=== PATIENT | male | born 1990 | race Two or more races ===

== ENCOUNTER 2017-12-18 00:30 | Inpatient (IN) | payer OTHER ==
[~2017-12-18] VITALS: Ht 167.6 cm; Wt 80.4 kg
[2017-12-18 01:09] LABS: BASO % 0 % (0-3); EOS # 0.2 x10^3/uL (0.0-0.7); EOS % 1 % (0-3); HEMATOCRIT 46.2 % (39.0-53.0); HEMOGLOBIN 15.9 g/dL (13.0-17.5); LYMPH # 2.2 x10^3/uL (1.0-4.8); LYMPH % 12 % (24-48); MEAN CORPUSCULAR HEMOGLOBIN 30 pg (25-35); MEAN CORPUSCULAR HGB CONC 35 g/dL (31-37); MEAN CORPUSCULAR VOLUME 88 fL (79-100); MONO # 0.9 x10^3/uL (0.0-1.1); MONO % 5 % (0-9); NEUT # 14.7 x10^3uL (1.8-7.7); NEUT % 81 % (31-73); PLATELET COUNT 205 x10^3/uL (140-400); RED BLOOD COUNT 5.24 x10^6/uL (4.30-5.70); RED CELL DISTRIBUTION WIDTH 13.6 % (11.5-14.5); WHITE BLOOD COUNT 18.1 x10^3/uL (4.0-11.0)
[2017-12-18] MEDS ORDERED: ONDANSETRON PF 4 MG/2 ML VIAL. IV ONE (01:30)
[2017-12-18] MEDS ORDERED: IV NORMAL SALINE 1000ML BAG 1,000 ML IV ONE (01:30)
[2017-12-18] MEDS ORDERED: IOHEXOL 300 MG/ML 100ML VIAL. IV ONE (01:30)
[2017-12-18] MEDS ORDERED: CONTRAST GIVEN. MC PRN (01:30)
[2017-12-18] MEDS ORDERED: fentaNYL PF VIAL 100 MCG/2 ML VIAL IV ONE ×2 (01:30→02:30)
[2017-12-18 01:32] LABS: PROTHROMBIN TIME PATIENT 13.9 SEC (11.7-14.0)
[2017-12-18 01:33] LABS: CALCIUM 9.9 mg/dL (8.5-10.1); CREATININE 0.9 mg/dL (0.7-1.3); GFR 101.2; POTASSIUM 3.5 mmol/L (3.5-5.1)
[2017-12-18 01:39] LABS: ALBUMIN 4.3 g/dL (3.4-5.0); ALBUMIN/GLOBULIN RATIO 1.2 (1.0-1.7); TOTAL BILIRUBIN 0.6 mg/dL (0.2-1.0)
--- NOTE | 2017-12-18 02:17 | RAD ---
CT abdomen and pelvis with contrast HISTORY: Right lower quadrant abdominal pain. TECHNIQUE: Helical CT imaging of the abdomen and pelvis with 75 mL Omnipaque 300 intravenous contrast. Abdomen findings: Liver, gallbladder, pancreas, spleen, left adrenal gland and kidneys are unremarkable. Calcifications right adrenal gland. No bowel obstruction. There is acute appendicitis with mild density at the base of the appendix likely a small appendicolith, with wall thickening and edema surrounding the appendix, the appendix diameter is 7 mm. No abscess. No abdominal fluid or adenopathy. There is mild focal ileus of the terminal ileum due to inflammation of the adjacent appendix. Pelvis findings: No fluid or adenopathy. Bladder, prostate, rectum and bones are unremarkable. IMPRESSION: Early changes of acute appendicitis as described above. Exposure: One or more of the following individualized dose reduction techniques were utilized for this examination: 1. Automated exposure control 2. Adjustment of the mA and/or kV according to patient size 3. Use of iterative reconstruction technique Electronically signed by: Ricky Gonsales MD (12/18/2017 2:14 AM) [id number]
--- NOTE | 2017-12-18 02:49 | PHYS DOC ---
Past Medical History Past Medical History: No Pertinent History Past Surgical History: No Surgical History Alcohol Use: None Drug Use: None Adult General Chief Complaint Chief Complaint: ABDOMINAL PAIN HPI HPI 27-year-old male who is currently incarcerated presents with 24-hour history of progressive right lower quadrant pain, nausea and anorexia. He states the pain initially started out in the periumbilical area and has migrated to the right. There is been no gross hematuria or dysuria. No fever chills or sweats. He's never had this kind of pain before. He still has his appendix.[] Review of Systems Review of Systems Constitutional: Denies fever or chills [] Eyes: Denies change in visual acuity, redness, or eye pain [] HENT: Denies nasal congestion or sore throat [] Respiratory: Denies cough or shortness of breath [] Cardiovascular: No additional information not addressed in HPI [] GI: Per history of present illness[] : Denies dysuria or hematuria [] Musculoskeletal: Denies back pain or joint pain [] Integument: Denies rash or skin lesions [] Neurologic: Denies headache, focal weakness or sensory changes [] Endocrine: Denies polyuria or polydipsia [] All other systems were reviewed and found to be within normal limits, except as documented in this note. Current Medications Current Medications Current Medications Medications (Trade) Dose Ordered Sig/Boby Start Time Stop Time Status Last Admin Dose Admin Fentanyl Citrate (Fentanyl 2ml Vial) 50 mcg 1X ONCE 12/18/17 02:30 12/18/17 02:31 DC 12/18/17 02:20 50 MCG Info (CONTRAST GIVEN -- Rx MONITORING) 1 each PRN DAILY PRN 12/18/17 01:30 12/20/17 01:29 Iohexol (Omnipaque 300 Mg/ml) 75 ml 1X ONCE 12/18/17 01:30 12/18/17 01:31 DC 12/18/17 01:56 75 ML Ondansetron HCl (Zofran) 4 mg 1X ONCE 12/18/17 01:30 12/18/17 01:31 DC 12/18/17 01:04 4 MG Sodium Chloride 1,000 ml @ 1,000 mls/hr 1X ONCE 12/18/17 01:30 12/18/17 02:29 DC 12/18/17 01:06 1,000 MLS/HR Allergies Allergies Allergies Coded Allergies Type Severity Reaction Last Updated Verified No Known Drug Allergies 12/18/17 No Physical Exam Physical Exam Constitutional: Well developed, well nourished, moderate distress, appears acutely ill. [] HENT: Normocephalic, atraumatic, bilateral external ears normal, oropharynx moist, no oral exudates, nose normal. [] Eyes: PERRLA, EOMI, conjunctiva normal, no discharge. [] Neck: Normal range of motion, no tenderness, supple, no stridor. [] Cardiovascular:Heart rate regular rhythm, no murmur [] Lungs & Thorax: Bilateral breath sounds clear to auscultation [] Abdomen: Right lower quadrant tender to palp with guarding and rebound[] Skin: Warm, dry, no erythema, no rash. [] Back: No tenderness, no CVA tenderness. [] Extremities: No tenderness, no cyanosis, no clubbing, ROM intact, no edema. [] Neurologic: Alert and oriented X 3, normal motor function, normal sensory function, no focal deficits noted. [] Psychologic: Affect normal, judgement normal, mood normal. [] Current Patient Data Vital Signs Vital Signs Date Time Temp Pulse Resp B/P (MAP) Pulse Ox O2 Delivery O2 Flow Rate FiO2 12/18/17 02:20 18 98 Room Air 12/18/17 01:58 93 144/65 (91) 12/18/17 00:30 98.6 98.6 Lab Values Laboratory Tests Test 12/18/17 00:46 White Blood Count 18.1 x10^3/uL (4.0-11.0) H Red Blood Count 5.24 x10^6/uL (4.30-5.70) Hemoglobin 15.9 g/dL (13.0-17.5) Hematocrit 46.2 % (39.0-53.0) Mean Corpuscular Volume 88 fL (79-100) Mean Corpuscular Hemoglobin 30 pg (25-35) Mean Corpuscular Hemoglobin Concent 35 g/dL (31-37) Red Cell Distribution Width 13.6 % (11.5-14.5) Platelet Count 205 x10^3/uL (140-400) Neutrophils (%) (Auto) 81 % (31-73) H Lymphocytes (%) (Auto) 12 % (24-48) L Monocytes (%) (Auto) 5 % (0-9) Eosinophils (%) (Auto) 1 % (0-3) Basophils (%) (Auto) 0 % (0-3) Neutrophils # (Auto) 14.7 x10^3uL (1.8-7.7) H Lymphocytes # (Auto) 2.2 x10^3/uL (1.0-4.8) Monocytes # (Auto) 0.9 x10^3/uL (0.0-1.1) Eosinophils # (Auto) 0.2 x10^3/uL (0.0-0.7) Basophils # (Auto) 0.0 x10^3/uL (0.0-0.2) Platelet Estimate Pending Prothrombin Time 13.9 SEC (11.7-14.0) Prothrombin Time INR 1.1 (0.8-1.1) Sodium Level 136 mmol/L (136-145) Potassium Level 3.5 mmol/L (3.5-5.1) Chloride Level 100 mmol/L (98-107) Carbon Dioxide Level 24 mmol/L (21-32) Anion Gap 12 (6-14) Blood Urea Nitrogen 9 mg/dL (8-26) Creatinine 0.9 mg/dL (0.7-1.3) Estimated GFR (Cockcroft-Gault) 101.2 BUN/Creatinine Ratio 10 (6-20) Glucose Level 105 mg/dL (70-99) H Calcium Level 9.9 mg/dL (8.5-10.1) Total Bilirubin 0.6 mg/dL (0.2-1.0) Aspartate Amino Transferase (AST) 17 U/L (15-37) Alanine Aminotransferase (ALT) 37 U/L (16-63) Alkaline Phosphatase 89 U/L (46-116) Total Protein 8.0 g/dL (6.4-8.2) Albumin 4.3 g/dL (3.4-5.0) Albumin/Globulin Ratio 1.2 (1.0-1.7) Laboratory Tests 12/18/17 00:46 Laboratory Tests 12/18/17 00:46 EKG EKG [] Radiology/Procedures Radiology/Procedures [] Impressions: PROCEDURE: CT ABD PELV W/ IV CONTRST ONLY CT abdomen and pelvis with contrast HISTORY: Right lower quadrant abdominal pain. TECHNIQUE: Helical CT imaging of the abdomen and pelvis with 75 mL Omnipaque 300 intravenous contrast. Abdomen findings: Liver, gallbladder, pancreas, spleen, left adrenal gland and kidneys are unremarkable. Calcifications right adrenal gland. No bowel obstruction. There is acute appendicitis with mild density at the base of the appendix likely a small appendicolith, with wall thickening and edema surrounding the appendix, the appendix diameter is 7 mm. No abscess. No abdominal fluid or adenopathy. There is mild focal ileus of the terminal ileum due to inflammation of the adjacent appendix. Pelvis findings: No fluid or adenopathy. Bladder, prostate, rectum and bones are unremarkable. IMPRESSION: Early changes of acute appendicitis as described above. Course & Med Decision Making Course & Med Decision Making Pertinent Labs and Imaging studies reviewed. (See chart for details) [] Dragon Disclaimer Dragon Disclaimer This electronic medical record was generated, in whole or in part, using a voice recognition dictation system. Departure Departure Impression: Primary Impression: Acute appendicitis Disposition: 09 ADMITTED INPATIENT Condition: STABLE Referrals: NO PCP (PCP) Problem Qualifiers Primary Impression: Acute appendicitis Acute appendicitis type: with generalized peritonitis Qualified Codes: K35.2 - Acute appendicitis with generalized peritonitis CATE HARLEY DO Dec 18, 2017 02:49
[2017-12-18] MEDS ORDERED: ONDANSETRON PF 4 MG/2 ML VIAL. IV PRN ×3 (03:00→17:45)
[2017-12-18] MEDS ORDERED: PIP/TAZO PER PHARMACY MC PRN (03:00)
[2017-12-18 03:05] LABS: BILIRUBIN,URINE NEGATIVE (NEG); CLARITY,URINE CLEAR; COLOR,URINE YELLOW; NITRITE,URINE NEGATIVE (NEG); PROTEIN,URINE NEGATIVE (NEG-TRACE); UROBILINOGEN,URINE 0.2 mg/dL (0.2 mg/dL)
[2017-12-18 03:20] VITALS: BP 132/67
[2017-12-18 03:20] LABS: BACTERIA,URINE 0 /HPF (0-FEW); RBC,URINE 0 /HPF (0-2); WBC,URINE 0 /HPF (0-4)
[2017-12-18 03:21] LABS: SQUAMOUS EPITHELIAL CELL,UR OCC /LPF
[2017-12-18] MEDS: fentaNYL PF VIAL 100 MCG/2 ML VIAL IV PRN ×5 (03:47→20:40)
[2017-12-18] MEDS: IV NORMAL SALINE 1000ML BAG 1,000 ML IV SCH ×2 (03:50→22:41)
[2017-12-18] MEDS: PIPERACILLIN/TAZOBACTAM 3.375 GM in IV NORMAL SALINE 50ML 50 ML IV SCH ×5 (03:51→23:32)
[2017-12-18 04:37] LABS: % BANDS 10 % (0-9); % LYMPHS 16 % (24-48); % MONOS 3 % (0-10); % SEGS 71 % (35-66); PLT ESTIMATE ADEQUATE (ADEQUATE)
[2017-12-18 07:00] VITALS: BP 110/54
[2017-12-18 11:00] VITALS: BP 110/59
--- NOTE | 2017-12-18 13:55 | PDOC1 ---
History and Physical Date of Admission Date of Admission DATE: 12/18/17 TIME: 13:51 Identification/Chief Complaint Chief Complaint RLQ abd pain Source Source: Chart review, Patient History of Present Illness History of Present Illness 27 yo M with RLQ abd pain for one day. No previous episode. No N/V. Past Medical History Cardiovascular: No pertinent hx Past Surgical History Past Surgical History: No pertinent history Family History Family History: No Significant Social History Smoke: No ALCOHOL: none Current Problem List Problem List Problems Medical Problems: (1) Acute appendicitis Status: Acute Current Medications Current Medications Current Medications Fentanyl Citrate (Fentanyl 2ml Vial) 50 mcg 1X ONCE IV Last administered on 12/18/17at 01:05; Start 12/18/17 at 01:30; Stop 12/18/17 at 01:31; Status DC Sodium Chloride 1,000 ml @ 1,000 mls/hr 1X ONCE IV Last administered on at 01:06; Start 12/18/17 at 01:30; Stop 12/18/17 at 02:29; Status DC Ondansetron HCl (Zofran) 4 mg 1X ONCE IV Last administered on 12/18/17at 01:04; Start 12/18/17 at 01:30; Stop 12/18/17 at 01:31; Status DC Iohexol (Omnipaque 300 Mg/ml) 75 ml 1X ONCE IV Last administered on 12/18/17at 01:56; Start 12/18/17 at 01:30; Stop 12/18/17 at 01:31; Status DC Info (CONTRAST GIVEN -- Rx MONITORING) 1 each PRN DAILY PRN MC SEE COMMENTS; Start 12/18/17 at 01:30; Stop 12/20/17 at 01:29 Fentanyl Citrate (Fentanyl 2ml Vial) 50 mcg 1X ONCE IV Last administered on 12/18/17at 02:20; Start 12/18/17 at 02:30; Stop 12/18/17 at 02:31; Status DC Piperacillin Sod/ Tazobactam Sod (Zosyn Per Pharmacy) 1 each PRN DAILY PRN MC SEE COMMENTS; Start 12/18/17 at 03:00 Ondansetron HCl (Zofran) 4 mg PRN Q8HRS PRN IV NAUSEA/VOMITING 1ST CHOICE; Start 12/18/17 at 03:00; Stop 12/19/17 at 02:59 Fentanyl Citrate (Fentanyl 2ml Vial) 50 mcg PRN Q2HR PRN IV SEVERE PAIN Last administered on 12/18/17at 03:47; Start 12/18/17 at 03:00; Stop 12/19/17 at 02:59 Sodium Chloride 1,000 ml @ 125 mls/hr Q8H IV Last administered on 12/18/17at 03: 50; Start 12/18/17 at 02:57; Stop 12/19/17 at 02:56 Piperacillin Sod/ Tazobactam Sod 3.375 gm/Sodium Chloride 50 ml @ 100 mls/hr Q6HRS IV Last administered on 12/18/17at 11:41; Start 12/18/17 at 03:30 Allergies Allergies: Coded Allergies: No Known Drug Allergies (Unverified , 12/18/17) ROS Gastrointestinal: Yes Abdominal Pain Physical Exam General: Alert, Oriented X3, Cooperative, No acute distress HEENT: Atraumatic Lungs: Normal air movement Abdomen: Soft, Other (TTP RLQ) Rectal Exam: not examined Extremities: No clubbing, No cyanosis Skin: No rashes, No breakdown Neuro: Normal speech, Sensation intact Psych/Mental Status: Mental status NL, Mood NL Vitals Vitals Vital Signs Date Time Temp Pulse Resp B/P (MAP) Pulse Ox O2 Delivery O2 Flow Rate FiO2 12/18/17 11:00 97.5 69 18 110/59 (76) 98 Room Air 97.5 Labs Labs Laboratory Tests Test 12/18/17 00:46 12/18/17 02:54 White Blood Count 18.1 x10^3/uL (4.0-11.0) Red Blood Count 5.24 x10^6/uL (4.30-5.70) Hemoglobin 15.9 g/dL (13.0-17.5) Hematocrit 46.2 % (39.0-53.0) Mean Corpuscular Volume 88 fL (79-100) Mean Corpuscular Hemoglobin 30 pg (25-35) Mean Corpuscular Hemoglobin Concent 35 g/dL (31-37) Red Cell Distribution Width 13.6 % (11.5-14.5) Platelet Count 205 x10^3/uL (140-400) Neutrophils (%) (Auto) 81 % (31-73) Lymphocytes (%) (Auto) 12 % (24-48) Monocytes (%) (Auto) 5 % (0-9) Eosinophils (%) (Auto) 1 % (0-3) Basophils (%) (Auto) 0 % (0-3) Neutrophils # (Auto) 14.7 x10^3uL (1.8-7.7) Lymphocytes # (Auto) 2.2 x10^3/uL (1.0-4.8) Monocytes # (Auto) 0.9 x10^3/uL (0.0-1.1) Eosinophils # (Auto) 0.2 x10^3/uL (0.0-0.7) Basophils # (Auto) 0.0 x10^3/uL (0.0-0.2) Segmented Neutrophils % 71 % (35-66) Band Neutrophils % 10 % (0-9) Lymphocytes % 16 % (24-48) Monocytes % 3 % (0-10) Platelet Estimate Adequate (ADEQUATE) Prothrombin Time 13.9 SEC (11.7-14.0) Prothromb Time International Ratio 1.1 (0.8-1.1) Sodium Level 136 mmol/L (136-145) Potassium Level 3.5 mmol/L (3.5-5.1) Chloride Level 100 mmol/L (98-107) Carbon Dioxide Level 24 mmol/L (21-32) Anion Gap 12 (6-14) Blood Urea Nitrogen 9 mg/dL (8-26) Creatinine 0.9 mg/dL (0.7-1.3) Estimated GFR (Cockcroft-Gault) 101.2 BUN/Creatinine Ratio 10 (6-20) Glucose Level 105 mg/dL (70-99) Calcium Level 9.9 mg/dL (8.5-10.1) Total Bilirubin 0.6 mg/dL (0.2-1.0) Aspartate Amino Transf (AST/SGOT) 17 U/L (15-37) Alanine Aminotransferase (ALT/SGPT) 37 U/L (16-63) Alkaline Phosphatase 89 U/L (46-116) Total Protein 8.0 g/dL (6.4-8.2) Albumin 4.3 g/dL (3.4-5.0) Albumin/Globulin Ratio 1.2 (1.0-1.7) Urine Collection Type Unknown Urine Color Yellow Urine Clarity Clear Urine pH 6.0 Urine Specific [place] >=1.030 Urine Protein Negative mg/dL (NEG-TRACE) Urine Glucose (UA) Negative mg/dL (NEG) Urine Ketones (Stick) Negative mg/dL (NEG) Urine Blood Negative (NEG) Urine Nitrite Negative (NEG) Urine Bilirubin Negative (NEG) Urine Urobilinogen Dipstick 0.2 mg/dL (0.2 mg/dL) Urine Leukocyte Esterase Negative (NEG) Urine RBC 0 /HPF (0-2) Urine WBC 0 /HPF (0-4) Urine Squamous Epithelial Cells Occ /LPF Urine Bacteria 0 /HPF (0-FEW) Laboratory Tests Test 12/18/17 00:46 12/18/17 02:54 White Blood Count 18.1 x10^3/uL (4.0-11.0) Red Blood Count 5.24 x10^6/uL (4.30-5.70) Hemoglobin 15.9 g/dL (13.0-17.5) Hematocrit 46.2 % (39.0-53.0) Mean Corpuscular Volume 88 fL (79-100) Mean Corpuscular Hemoglobin 30 pg (25-35) Mean Corpuscular Hemoglobin Concent 35 g/dL (31-37) Red Cell Distribution Width 13.6 % (11.5-14.5) Platelet Count 205 x10^3/uL (140-400) Neutrophils (%) (Auto) 81 % (31-73) Lymphocytes (%) (Auto) 12 % (24-48) Monocytes (%) (Auto) 5 % (0-9) Eosinophils (%) (Auto) 1 % (0-3) Basophils (%) (Auto) 0 % (0-3) Neutrophils # (Auto) 14.7 x10^3uL (1.8-7.7) Lymphocytes # (Auto) 2.2 x10^3/uL (1.0-4.8) Monocytes # (Auto) 0.9 x10^3/uL (0.0-1.1) Eosinophils # (Auto) 0.2 x10^3/uL (0.0-0.7) Basophils # (Auto) 0.0 x10^3/uL (0.0-0.2) Segmented Neutrophils % 71 % (35-66) Band Neutrophils % 10 % (0-9) Lymphocytes % 16 % (24-48) Monocytes % 3 % (0-10) Platelet Estimate Adequate (ADEQUATE) Prothrombin Time 13.9 SEC (11.7-14.0) Prothromb Time International Ratio 1.1 (0.8-1.1) Sodium Level 136 mmol/L (136-145) Potassium Level 3.5 mmol/L (3.5-5.1) Chloride Level 100 mmol/L (98-107) Carbon Dioxide Level 24 mmol/L (21-32) Anion Gap 12 (6-14) Blood Urea Nitrogen 9 mg/dL (8-26) Creatinine 0.9 mg/dL (0.7-1.3) Estimated GFR (Cockcroft-Gault) 101.2 BUN/Creatinine Ratio 10 (6-20) Glucose Level 105 mg/dL (70-99) Calcium Level 9.9 mg/dL (8.5-10.1) Total Bilirubin 0.6 mg/dL (0.2-1.0) Aspartate Amino Transf (AST/SGOT) 17 U/L (15-37) Alanine Aminotransferase (ALT/SGPT) 37 U/L (16-63) Alkaline Phosphatase 89 U/L (46-116) Total Protein 8.0 g/dL (6.4-8.2) Albumin 4.3 g/dL (3.4-5.0) Albumin/Globulin Ratio 1.2 (1.0-1.7) Urine Collection Type Unknown Urine Color Yellow Urine Clarity Clear Urine pH 6.0 Urine Specific [place] >=1.030 Urine Protein Negative mg/dL (NEG-TRACE) Urine Glucose (UA) Negative mg/dL (NEG) Urine Ketones (Stick) Negative mg/dL (NEG) Urine Blood Negative (NEG) Urine Nitrite Negative (NEG) Urine Bilirubin Negative (NEG) Urine Urobilinogen Dipstick 0.2 mg/dL (0.2 mg/dL) Urine Leukocyte Esterase Negative (NEG) Urine RBC 0 /HPF (0-2) Urine WBC 0 /HPF (0-4) Urine Squamous Epithelial Cells Occ /LPF Urine Bacteria 0 /HPF (0-FEW) Images Images CT c/w appendicitis VTE Prophylaxis Ordered VTE Prophylaxis Devices: Yes VTE Pharmacological Prophylaxi: Contraindicated Assessment/Plan Assessment/Plan Appendicitis given elevated WBC, concern for severe and/or perforated. IV abx started. TO OR for laparoscopic versus open appendectomy. R/R/B/A d/w pt. Risks, including, but not limited to: bleeding, infection, damage to surrounding structures, risk of anesthesia, risk of open. He appears to understand, his questions are answered and he elects to proceed. BRYCE LI MD Dec 18, 2017 13:55
[2017-12-18] MEDS ORDERED: BUPIVACAINE-EPI 0.5%-1:200000 50 ML VIAL. ONE (15:27)
[2017-12-18] MEDS ORDERED: IV RINGERS,LACTATED 1000ML 1,000 ML IV SCH (15:37)
[2017-12-18] MEDS ORDERED: fentaNYL PF VIAL 100 MCG/2 ML VIAL IV PRN (15:45)
[2017-12-18] MEDS ORDERED: HYDROmorphone 2 MG/ML VIAL IV PRN (15:45)
[2017-12-18] MEDS ORDERED: PROCHLORPERAZINE 10 MG/2 ML VIAL. IV PRN (15:45)
[2017-12-18] MEDS ORDERED: MORPHINE SULFATE 2 MG/ML VIAL. IV PRN (15:45)
[2017-12-18] MEDS ORDERED: LIDOCAINE 1% PF 2 ML VIAL. ID PRN (15:45)
[2017-12-18] MEDS ORDERED: fentaNYL PF VIAL 100 MCG/2 ML VIAL ONE ×2 (16:40→17:48)
[2017-12-18] MEDS ORDERED: ROCURONIUM 50 MG/5 ML VIAL. ONE (17:30)
[2017-12-18] MEDS ORDERED: SEVOFLURANE 61 TO 120 MINUTES. IH ONE (17:30)
[2017-12-18] MEDS ORDERED: DESFLURANE 61 TO 120 MINUTES IH ONE (17:30)
[2017-12-18] MEDS ORDERED: ONDANSETRON PF 4 MG/2 ML VIAL. ONE (17:31)
[2017-12-18] MEDS ORDERED: PROPOFOL 20 ML IV ONE (17:31)
[2017-12-18] MEDS ORDERED: DEXAMETHASONE SOD PHOS 20 MG/5 ML VIAL. ONE (17:31)
[2017-12-18] MEDS ORDERED: NEOSTIGMINE METHYLSULFATE 5 MG/5 ML SYRINGE. ONE (17:33)
[2017-12-18] MEDS ORDERED: GLYCOPYRROLATE 1 MG/5 ML VIAL. ONE (17:33)
--- NOTE | 2017-12-18 17:39 | PDOC4 ---
OPERATIVE NOTE Date: Date: Dec 18, 2017 Pre-Op Diagnosis: Appendicitis Post-Op Diagnosis: same Procedure Performed: Laparoscopic appendectomy Surgeon: Hector Li Anesthesia Type: GETA plus local Blood Loss: 50 Specimans Obtained: appendix Findings: erythematous, thickened appendix Complications: none Operative Note: After obtaining informed consent, patient was taken to OR, induced under GETA and prepped in the usual fashion. 5 mm port placed LLQ and suprapubic, 12 port placed umbilical, all under laparoscopic guidance. Abdominal cavity explored and otherwise unremarkable. Appendix was identified off the cecum and noted to be thickened and inflamed. Base divided with general load ROSE, mesoappendix divided with vascular load. Additional hemostasis obtained with clips on mesoappendix. Copious irrigation. No evidence of bleeding or other pathology. Ports removed without bleeding. Fascia repaired with 0 vicryl. Skin repaired with 4 0 monocryl. Dressing applied. Patient tolerated procedure well and sent to PACU in stable condition. All counts correct. BRYCE LI MD Dec 18, 2017 17:39
[2017-12-18] MEDS ORDERED: KETOROLAC 15 MG/ML VIAL. IV PRN (17:45)
[2017-12-18] MEDS ORDERED: 0.9 % SODIUM CHLORIDE 10 ML DISP.SYRIN. IV PRN (17:45)
[2017-12-18] MEDS: IV RINGERS,LACTATED 1000ML 1,000 ML IV SCH (18:09)
[2017-12-18 19:00] VITALS: BP 136/66
[2017-12-18] MEDS: DOCUSATE SODIUM 100 MG CAPSULE. PO SCH (20:41)
[2017-12-18 23:00] VITALS: BP_SYST 120; BP_SYST 123; BP_DIAS 49; BP_DIAS 51
[2017-12-19] MEDS: HYDROcodone/APAP 5/325MG 1 TAB TABLET PO PRN ×3 (02:43→13:38)
[2017-12-19 03:00] VITALS: BP 120/51
[2017-12-19] MEDS: IV RINGERS,LACTATED 1000ML 1,000 ML IV SCH ×2 (03:33→13:33)
[2017-12-19] MEDS: PIPERACILLIN/TAZOBACTAM 3.375 GM in IV NORMAL SALINE 50ML 50 ML IV SCH ×2 (06:16→11:52)
[2017-12-19 07:00] VITALS: BP 118/48
[2017-12-19] MEDS: DOCUSATE SODIUM 100 MG CAPSULE. PO SCH (08:30)
[2017-12-19 10:42] VITALS: BP 129/64
--- NOTE | 2017-12-19 14:41 | PDOC3 ---
Discharge Summary Visit Information Date of Admission: Dec 18, 2017 Date of Discharge: Dec 19, 2017 Admitting Diagnosis: Appendicitis Final Diagnosis Problems Medical Problems: (1) Acute appendicitis Status: Acute Brief Hospital Course Allergies Allergies Coded Allergies Type Severity Reaction Last Updated Verified No Known Drug Allergies 12/18/17 No Vital Signs Vital Signs Date Time Temp Pulse Resp B/P (MAP) Pulse Ox O2 Delivery O2 Flow Rate FiO2 12/19/17 14:35 97 Room Air 10.0 12/19/17 10:42 98.1 92 14 129/64 (85) 98.1 Lab Results Laboratory Tests Test 12/18/17 00:46 12/18/17 02:54 12/18/17 04:00 White Blood Count 18.1 x10^3/uL (4.0-11.0) Red Blood Count 5.24 x10^6/uL (4.30-5.70) Hemoglobin 15.9 g/dL (13.0-17.5) Hematocrit 46.2 % (39.0-53.0) Mean Corpuscular Volume 88 fL (79-100) Mean Corpuscular Hemoglobin 30 pg (25-35) Mean Corpuscular Hemoglobin Concent 35 g/dL (31-37) Red Cell Distribution Width 13.6 % (11.5-14.5) Platelet Count 205 x10^3/uL (140-400) Neutrophils (%) (Auto) 81 % (31-73) Lymphocytes (%) (Auto) 12 % (24-48) Monocytes (%) (Auto) 5 % (0-9) Eosinophils (%) (Auto) 1 % (0-3) Basophils (%) (Auto) 0 % (0-3) Neutrophils # (Auto) 14.7 x10^3uL (1.8-7.7) Lymphocytes # (Auto) 2.2 x10^3/uL (1.0-4.8) Monocytes # (Auto) 0.9 x10^3/uL (0.0-1.1) Eosinophils # (Auto) 0.2 x10^3/uL (0.0-0.7) Basophils # (Auto) 0.0 x10^3/uL (0.0-0.2) Segmented Neutrophils % 71 % (35-66) Band Neutrophils % 10 % (0-9) Lymphocytes % 16 % (24-48) Monocytes % 3 % (0-10) Platelet Estimate Adequate (ADEQUATE) Prothrombin Time 13.9 SEC (11.7-14.0) Prothromb Time International Ratio 1.1 (0.8-1.1) Sodium Level 136 mmol/L (136-145) Potassium Level 3.5 mmol/L (3.5-5.1) Chloride Level 100 mmol/L (98-107) Carbon Dioxide Level 24 mmol/L (21-32) Anion Gap 12 (6-14) Blood Urea Nitrogen 9 mg/dL (8-26) Creatinine 0.9 mg/dL (0.7-1.3) Estimated GFR (Cockcroft-Gault) 101.2 BUN/Creatinine Ratio 10 (6-20) Glucose Level 105 mg/dL (70-99) Calcium Level 9.9 mg/dL (8.5-10.1) Total Bilirubin 0.6 mg/dL (0.2-1.0) Aspartate Amino Transf (AST/SGOT) 17 U/L (15-37) Alanine Aminotransferase (ALT/SGPT) 37 U/L (16-63) Alkaline Phosphatase 89 U/L (46-116) Total Protein 8.0 g/dL (6.4-8.2) Albumin 4.3 g/dL (3.4-5.0) Albumin/Globulin Ratio 1.2 (1.0-1.7) Urine Collection Type Unknown Urine Color Yellow Urine Clarity Clear Urine pH 6.0 Urine Specific [place] >=1.030 Urine Protein Negative mg/dL (NEG-TRACE) Urine Glucose (UA) Negative mg/dL (NEG) Urine Ketones (Stick) Negative mg/dL (NEG) Urine Blood Negative (NEG) Urine Nitrite Negative (NEG) Urine Bilirubin Negative (NEG) Urine Urobilinogen Dipstick 0.2 mg/dL (0.2 mg/dL) Urine Leukocyte Esterase Negative (NEG) Urine RBC 0 /HPF (0-2) Urine WBC 0 /HPF (0-4) Urine Squamous Epithelial Cells Occ /LPF Urine Bacteria 0 /HPF (0-FEW) Nasal Screen MRSA (PCR) Negative (Negative) Brief Hospital Course Mr. Cloud is a 27 old M with appendicitis. He underwent laparoscopic appendectomy on 12/18. POD #1 doing and stable for d/c. Discharge Information Condition at Discharge: Improved Follow Up: Weeks (2) Disposition/Orders: D/C to Home Patient Instructions Patient Instructions Diet as tolerated No heavy lifting Remove dressing in AM, OK to shower then. F/u in two weeks OK to tylenol and/or ibuprofen. BRYCE LI MD Dec 19, 2017 14:41
[2017-12-19 15:00] VITALS: BP 112/51
--- NOTE | 2017-12-21 10:31 | PATHOLOGY ---
[facility] Accession Number: [id number] . 01 Material submitted: . APPENDIX . 01 Clinical history: . None provided. . 02 Diagnosis: Appendix, laparoscopic appendectomy: - Acute appendicitis. (JPM:dalia; 12/20/2017) QMS/12/20/2017 . 02 Comment: There is no evidence of rupture. . 02 Electronically signed: . Mark Cordoba MD, Pathologist NPI- [id number] . 01 Gross description: . Received in formalin labeled "Gianfranco Cloud, appendix" is a vermiform appendix measuring 8.8 cm in length and 0.8 cm in diameter. There is an attached portion of mesoappendix measuring 4.0 x 2.0 x 1.3 cm. The serosa is pink-benjamin with focal purulent exudate over 5% of the surfaces. The proximal margin is closed with a staple line. The appendix is sectioned to reveal a luminal diameter of 0.2 cm and no fecaliths or perforations identified. Per Diem Rn sections are submitted in cassette A1, with the proximal margin inked black. [place] 12[place]19[place] SYC/SYC . 02 Pathologist provided ICD-10: K35.80 . 02 CPT . 860969 Performed at: 01 [facility] [address], [place] [id number] MD Demarcus Marino MD Phone: [phone] Performed at: 02 [facility] [address] [place], [place] [id number] MD Mark Cordoba MD Phone: [phone]
== END 2017-12-19 17:15 | DRG 341 ==
LOC: ER 00:30 → EEVIPCON 03:00 → 4 NORTH 03:00
PROVIDERS: ADMIT Surgery; ATTEND Surgery
PROC: 0DTJ4ZZ Resection of Appendix, Percutaneous Endoscopic Approach (ICD-10-PCS; principal; 2017-12-18 15:30)
DX: K35.80 Unspecified acute appendicitis (principal); R65.11 Systemic inflammatory response syndrome (SIRS) of non-infectious origin with acute organ dysfunction
CPT/HCPCS: 36415; 74177; 80053; 81001; 85007; 85025; 85610; 87641; 88304; 96361; 96374; 96375; 96376; A7015; J1100; J1885; J2405; J2543; J2704; J2710; J3010; J3490; J7030; J7120; Q9967; 99285-25